=== PATIENT | male | born 1970 | race Caucasian/White ===

== ENCOUNTER 2019-07-20 16:52 | Outpatient (CLI) | payer OTHER, SELFPAY ==
[2019-07-20 17:20] LABS: Basophils Percent Auto 0.7 % (0.2-1.2); Eosinophils Absolute Auto 0.1 K/mm3 (0-0.3); Eosinophils Percent Auto 2.2 % (0-4.4); Hematocrit 41.4 % (42.0-52.0); Hemoglobin 14.6 g/dL (14.0-18.0); Immature Granulocyte Absolute 0.01 K/mm3 (0.00-0.031); Immature Granulocyte Percent A 0.2 % (0-0.5); Lymphocytes Absolute Auto 2.43 K/mm3 (0.9-3.2); Lymphocytes Percent Auto 40.4 % (18.3-44.2); Mean Corpuscular HGB Conc 35.3 g/dl (32-36); Mean Corpuscular Hemoglobin 31.2 pg (26-34); Mean Corpuscular Volume 88.5 fl (80-100); Mean Platelet Volume 9.3 fl (7.4-10.4); Monocytes Absolute Auto 0.5 K/mm3 (0.1-0.6); Monocytes Percent Auto 8.1 % (2.6-8.5); Neutrophils Absolute Auto 2.9 K/mm3 (1.3-6.7); Neutrophils Percent Auto 48.4 % (45.5-73.1); Platelet Count Result 188 k/mm3 (150-375); Red Blood Count 4.68 M/mm3 (4.6-6.20); Red Cell Distribution Width 13.1 % (11.5-14.5)
[2019-07-20 17:24] LABS: Alanine Aminotransferase 33 U/L (4-50); Albumin Level 4.5 g/dL (3.5-5.1); Alkaline Phosphatase 73 U/L (38-126); Aspartate Amino Transferase 28 U/L (17-59); Bilirubin,Total 0.4 mg/dL (0.2-1.3); Blood Urea Nitrogen 13 mg/dL (9-20); Calcium 8.8 mg/dL (8.4-10.2); Carbon Dioxide 25 mmol/L (22-30); Chloride 106 mmol/L (98-107); Estimated Glomerular Filt Rate > 60; Glucose 85 mg/dL (75-110); Sodium 138 mmol/L (137-145)
[2019-07-20 17:35] LABS: Troponin I < 0.012 ng/mL (0.000-0.034)
== END 2019-07-20 16:53 | disposition home or self-care (01) ==
PROVIDERS: PCP Internal Medicine; Visit Provider Internal Medicine
DX: R06.02 Shortness of breath (principal); R07.89 Other chest pain
CPT/HCPCS: 36415; 80053; 84484; 85025

== ENCOUNTER 2019-08-26 10:10 | Outpatient (CLI) | payer OTHER, SELFPAY ==
[2019-08-26 11:00] LABS: Erythrocyte Sedimentation Rate 8 mm/hr (0-20)
== END 2019-08-26 10:11 | disposition home or self-care (01) ==
LOC: ANHLAB 10:11
PROVIDERS: PCP Internal Medicine; Visit Provider Internal Medicine
DX: R51 Headache (principal)
CPT/HCPCS: 36415; 85652

== ENCOUNTER 2021-09-07 09:44 | Inpatient (IN) | payer BC, SELFPAY ==
[2021-09-07] VITALS (24 sets, daily range): BP systolic 96–121; BP diastolic 56–92; PULSE 72–111; RESP 14–28; TEMP 36.5–36.9; O2SAT 94–96
--- NOTE | ~2021-09-07 | US_ITS ---
EXAMINATION: US venous doppler [facility] DATE: 09/10/2021 08:27 INDICATION: Shortness of breath TECHNIQUE: Ma scale images without and with compression and Doppler images of the bilateral lower e xtremity veins were obtained. COMPARISON: None FINDINGS: The right common femoral vein, profunda femoral vein, femoral vein, popliteal vein, peroneal trunk, p osterior tibial veins, and greater saphenous vein are patent. The left common femoral vein, profunda femoral vein, femoral vein, popliteal vein, peroneal trunk, po sterior tibial veins, and greater saphenous vein are patent. IMPRESSION: 1. Patent bilateral lower extremity veins. No evidence of deep venous thrombosis. Reviewed, dictated and finalized at location A. IMPRESSION: 1. Patent bilateral lower extremity veins. No evidence of deep venous thrombosi s.
--- NOTE | ~2021-09-07 | CT_ITS ---
EXAMINATION: CTA chest PE protocol DATE: 09/08/2021 14:16 INDICATION: NAVARRO, elevated d-dimer TECHNIQUE: Computed tomography angiography (CTA) of the chest was performed with 100 mL Omnipaque-350 intravenous contrast timed to evaluate the pulmonary arteries. Coronal maximum intensity projection 3D-reconstructions were created by the technologist. The dose-length product (DLP) was 932.86 mGy-cm. Automated exposure control and iterative reconstruction technique were employed. COMPARISON: X-ray chest 09/07/2021. FINDINGS: Study quality: Adequate. Pulmonary arteries: No pulmonary emboli detected. Dilation of the left and right main pulmonary arter ies. Thoracic aorta: Normal. Lung parenchyma and airways: Apical pleural blebs. Mild emphysematous change. Patchy dependent ground glass opacities. Mild interlobular septal thickening. Airways are clear. Thoracic inlet, axillae and chest wall: Unremarkable. Mediastinum: Normal. Heart and pericardium: Enlarged. Hepatic vein reflux. Coronary artery calcifications: Mild. Pleura: Small volume bilateral pleural fluid collections. Upper abdomen: No significant finding. Bones: No acute osseous finding. IMPRESSION: No CT evidence of acute pulmonary embolus. Pulmonary arterial dilation as can be seen with pulmonary artery hypertension. Hepatic vein reflux may indicate presence of right heart failure. Cardiomegaly. Mild pulmonary edema and small bilateral effusions. Reviewed, dictated and finalized at location K. IMPRESSION: No CT evidence of acute pulmonary embolus. Pulmonary arterial dilation as can b e seen with pulmonary artery hypertension. Hepatic vein reflux may indicate pre sence of right heart failure. Cardiomegaly. Mild pulmonary edema and small bila teral effusions.
--- NOTE | ~2021-09-07 | XR_ITS ---
EXAMINATION: XR chest 2V DATE: 09/07/2021 10:44 INDICATION: Chest pain and shortness of breath TECHNIQUE: PA and lateral views of the chest were obtained. COMPARISON: None FINDINGS: Increased interstitial pattern with perihilar and lower lung predominance along with multiple periphe ral José Luis B-lines along the bilateral mid to lower lung zones consistent with pulmonary edema. Small bilateral pleural effusions. No pneumothorax. Mild cardiomegaly. Mild thoracic spondylosis. IMPRESSION: 1. Likely congestive heart failure with mild cardiomegaly, mild pulmonary edema and small bilateral p leural effusions. Reviewed, dictated and finalized at location B. IMPRESSION: 1. Likely congestive heart failure with mild cardiomegaly, mild pulmonary edema and small bilateral pleural effusions.
--- NOTE | 2021-09-07 09:54 | ECG_ITS ---
Measurements Intervals [place] Rate: 103 P: 60 WI: 152 QRS: -42 QRSD: 106 T: 61 QT: 344 QTc: 451 Interpretive Statements SINUS TACHYCARDIA WITH OCCASIONAL VENTRICULAR PREMATURE COMPLEXES POSSIBLE LEFT ATRIAL ENLARGEMENT [-0.1mV P WAVE IN V1/V2] MARKED LEFT AXIS DEVIATION [QRS AXIS < -30] NONSPECIFIC T-WAVE ABNORMALITY NO PREVIOUS ECG AVAILABLE FOR COMPARISON Electronically Signed On 09-07-2021 16:47:04 CDT by Tommy Mendoza M.D.
[2021-09-07 10:14] LABS: Basophils Percent Auto 0.6 % (0.2-1.2); Eosinophils Absolute Auto 0.1 K/mm3 (0-0.3); Eosinophils Percent Auto 2.7 % (0-4.4); Hematocrit 39.9 % (42.0-52.0); Hemoglobin 13.1 g/dL (14.0-18.0); Immature Granulocyte Absolute 0.01 K/mm3 (0.00-0.031); Immature Granulocyte Percent A 0.2 % (0-0.5); Lymphocytes Absolute Auto 1.09 K/mm3 (0.9-3.2); Lymphocytes Percent Auto 22.4 % (18.3-44.2); Mean Corpuscular HGB Conc 32.8 g/dl (32-36); Mean Corpuscular Hemoglobin 29.6 pg (26-34); Mean Corpuscular Volume 90.3 fl (80-100); Mean Platelet Volume 9.7 fl (7.4-10.4); Monocytes Absolute Auto 0.4 K/mm3 (0.1-0.6); Neutrophils Absolute Auto 3.2 K/mm3 (1.3-6.7); Neutrophils Percent Auto 66.1 % (45.5-73.1); Platelet Count Result 176 k/mm3 (150-375); Red Blood Count 4.42 M/mm3 (4.6-6.20); Red Cell Distribution Width 14.6 % (11.5-14.5); White Blood Count 4.9 K/mm3 (4.5-10.0)
[2021-09-07 10:29] LABS: Alanine Aminotransferase 63 U/L (6-50); Albumin Level 4.3 g/dL (3.5-5.1); Alkaline Phosphatase 60 U/L (38-126); Anion Gap 5 mmol/L (8-16); Aspartate Amino Transferase 58 U/L (17-59); Blood Urea Nitrogen 12 mg/dL (9-20); Calcium 8.5 mg/dL (8.4-10.2); Carbon Dioxide 26 mmol/L (22-30); Chloride 107 mmol/L (98-107); Estimated Glomerular Filt Rate > 60; Glucose 108 mg/dL (65-110); Potassium 4.7 mmol/L (3.4-5.0); Sodium 138 mmol/L (137-145)
[2021-09-07 10:35] LABS: NT Pro B Type Natriuretic Pept 909 pg/mL (5-100)
[2021-09-07] MEDS: ALBUTEROL SULFATE NEB 2.5 MG/3 ML INH 5 MG INHALATION (10:44)
[2021-09-07] MEDS: IPRATROPIUM BR 0.02% INH SOLN 0.5 MG/2.5 ML VIAL INHALATION (10:45)
--- NOTE | 2021-09-07 10:54 | PC.NURSE ---
called lab to add on a Trop baseline at 1028; called lab again at 1055 to have them run the Trop baseline
[2021-09-07 11:19] LABS: Troponin I < 0.012 ng/mL (0.000-0.034)
[2021-09-07] MEDS: FUROSEMIDE INJ 40 MG/4 ML VIAL IV PUSH (11:29)
--- NOTE | 2021-09-07 11:58 | ED.SOB ---
HPI - SOB/Dyspnea General Chief Complaint: Shortness of Breath/Dyspnea Stated Complaint: shortness of breath - sent from PCP for abn EKG Time Seen by Provider: 09/07/21 09:52 History of Present Illness HPI Narrative: Patient is a 50-year-old male who presents ER with shortness of breath. Ongoing for 10 days. Associated with orthopnea and coughing and wake himself up at night. No fevers or chills or sweats. No new lower extremity swelling. Reported some mild chest pain that occurred yesterday for about 30 minutes was working. It was aching. Sent from his PCPs office due to symptoms. No history of heart disease. He has been using his home inhalers without improvement. Related Data Allergies Allergy/AdvReac Type Severity Reaction Status Date / Time No Known Allergies Allergy Verified 09/07/21 09:53 Review of Systems Review of Systems: All systems reviewed & are unremarkable except as noted in HPI and below Constitutional: Constitutional: Denies chills, Reports fatigue and Denies fever(s) ENT: Denies sore throat Cardiovascular: Cardiovascular: Reports chest pain, Denies rapid heart rate and Denies radiating jaw, neck or arm pain Respiratory: Respiratory: Denies cough, Reports dyspnea and Denies wheezing Comments: orthopnea Gastrointestinal: Gastrointestinal: Denies abdominal pain, Denies nausea and Denies vomiting Exam Narrative: GENERAL: Well-appearing, well-nourished, and in no acute distress. HEAD: Normocephalic, atraumatic. EYES: PERRL and EOMI. CHEST: Clear to auscultation. No respiratory distress. Faint expiratory wheeze left upper lung. HEART: Tachycardic and regular. Normal peripheral pulses. ABDOMEN: Soft, nontender, nondistended. EXTREMITIES: Normal range of motion. No edema. SKIN: Warm, dry, no rash. NEURO: Alert and oriented x3. PSYCH: Normal mood and affect. Course Course Emergency Course: Admit to the hospital service for diuresis and an echocardiogram. Vital Signs Vital signs: Vital Signs Temperature 98.4 F 09/07/21 09:49 Pulse Rate 111 H 09/07/21 09:49 Respiratory Rate 22 H 09/07/21 09:49 Pulse Oximetry 95 09/07/21 09:49 Oxygen Delivery Room Air 09/07/21 09:49 Temperature 98.4 F 09/07/21 09:49 Pulse Rate 102 H 09/07/21 12:36 Respiratory Rate 28 H 09/07/21 12:36 Blood Pressure 116/92 H 09/07/21 12:36 Pulse Oximetry 95 09/07/21 11:26 Oxygen Delivery Room Air 09/07/21 10:48 MDM - SOB/Dyspnea Lab Data Result diagrams: 09/07/21 10:04 09/07/21 10:04 Labs: Lab Results 09/07/21 09/07/21 09/07/21 Range/Units 10:04 10:04 10:04 WBC 4.9 (4.5-10.0) K/mm3 RBC 4.42 L (4.6-6.20) M/mm3 Hgb 13.1 L (14.0-18.0) g/dL Hct 39.9 L (42.0-52.0) % MCV 90.3 (80-100) fl MCH 29.6 (26-34) pg MCHC 32.8 (32-36) g/dl RDW 14.6 H (11.5-14.5) % Plt Count 176 (150-375) k/mm3 MPV 9.7 (7.4-10.4) fl Immature Gran % (Auto) 0.2 (0-0.5) % Neut % (Auto) 66.1 (45.5-73.1) % Lymph % (Auto) 22.4 (18.3-44.2) % [place] % (Auto) 8.0 (2.6-8.5) % Eos % (Auto) 2.7 (0-4.4) % Baso % (Auto) 0.6 (0.2-1.2) % Lymph # (Auto) 1.09 (0.9-3.2) K/mm3 [place] # (Auto) 0.4 (0.1-0.6) K/mm3 Eos # (Auto) 0.1 (0-0.3) K/mm3 Baso # (Auto) 0.0 (0.0-0.1) K/mm3 Abs Immat Gran (auto) 0.01 (0.00-0.031) K/mm3 Absolute Neuts (auto) 3.2 (1.3-6.7) K/mm3 Absolute Nucleated RBC 0.0 (0.0-0.012) K/mm3 Nucleated RBC % 0.0 (0.0-0.2) % Sodium 138 (137-145) mmol/L Potassium 4.7 (3.4-5.0) mmol/L Chloride 107 (98-107) mmol/L Carbon Dioxide 26 (22-30) mmol/L Anion Gap 5 L (8-16) mmol/L BUN 12 (9-20) mg/dL Creatinine 0.80 (0.7-1.3) mg/dL Estim Creat Clear Calc Not Reportable Estimated GFR > 60 (59 - ) Glucose 108 (65-110) mg/dL Calcium 8.5 (8.4-10.2) mg/dL Total Bilirubin 1.0 (0.2-1.3) mg/dL AST 58 (17-59) U/L ALT
--- NOTE | 2021-09-07 13:06 | ADMGEN ---
This patient, Kwasi Hwang, was admitted to Medical Room 249-01. Patient/family oriented to hospital policies and general routines including ID bracelet, bed and alarms, visiting hours, pain management, procedures, bathroom and other care routines, personal items, smoking policy, room service/diet, and visiting hours. Information on how to activate the Rapid Response Team has been discussed. Patient/Family are encouraged to report perceived risks to care and to ask questions if they do not understand what they are told or what they should do. Reviewed plan of care
--- NOTE | 2021-09-07 14:30 | PM.IMHP ---
H&P: HPI History of Present Illness Date/Time: 09/07/21 14:30 Chief Complaint: Shortness of breath. Narrative: This is a pleasant 50-year-old male with no significant medical history presented to the emergency department for evaluation of shortness of breath. Over the past 1 month or so he has developed shortness of breath, mainly at nighttime with orthopnea and dry cough. At times he has awakened from sleep with shortness of breath and an ache or squeezing like sensation around the chest ?almost like I am suffocating.? The symptoms improved quickly once he gets to a seated or standing position. He even describes having to kneel on the floor and lean on the bed in order to sleep. 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 He was tachycardic on arrival to the emergency department with an EKG showing sinus tachycardia and occasional PVCs. Chest x-ray showed findings consistent with pulmonary edema, small bilateral pleural effusions, and mild cardiomegaly and he is being admitted in this setting for further evaluation. He has no known history of cardiac disease, sleep apnea, or thyroid disease. He has never had a stress test or other cardiac workup. He has not noticed any significant lower extremity edema and denies calf pain and tenderness. No syncope or near syncope. No recent travel. No nausea, vomiting, or sweats. Of note, the patient consumes 2 to 3 Monster drinks a day. Review of Systems Review of Systems: Twelve systems were reviewed and are negative except for as per HPI. [facility] Past Medical History Medical History No significant past medical history Surgical History Surgical History (Updated 09/07/21 @ 15:59 by Yuliet Shay PA-C) History of bilateral inguinal hernia repair History of ventral hernia repair Family History Family History Father Diabetes mellitus Cerebrovascular accident Mother Lung cancer Social History Social History (Updated 09/07/21 @ 16:01 by Yuliet Shay PA-C) Social History: Surrogate decision maker: Jessica Hwang, spouse. Code status: Full code. Smoking status: Former smoker Additional smoking assessment comments: 1 to 2 packs of cigarettes a day for 30 years. Alcohol intake: former Substance use: never Living arrangements: with family Additional living arrangements comments: The patient lives with his in [place]. They have 3 grown children. 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 Spiritual care concerns: No Meds Home Medications and Allergies Home Medications Medication Instructions Recorded Confirmed Type multivitamin with minerals-folic 1 tablet PO DAILY 09/07/21 09/07/21 History acid 0.4 mg tablet naproxen sodium 220 mg tablet 220 mg PO BID PRN Pain 09/07/21 09/07/21 History (Aleve) omeprazole 20 mg capsule,delayed 20 mg PO DAILY 09/07/21 09/07/21 History release carvedilol 3.125 mg tablet (Coreg) 3.125 mg PO Q12HR #60 tabs 09/10/21 Rx empagliflozin 10 mg tablet 10 mg PO DAILY #30 tabs 09/10/21 Rx (Jardiance) sacubitril 24 mg-valsartan 26 mg 0.5 tablet PO Q12HR #30 tabs 09/10/21 Rx tablet (Entresto) spironolactone 25 mg tablet 25 mg PO QAM #30 tabs 09/10/21 Rx Allergies Allergy/AdvReac Type Severity Reaction Status Date / Time No Known Allergies Allergy Verified 09/07/21 13:44 Vital Signs Vital Signs - 24 hr 09/07/21 09:49 09/07/21 09:54 09/07/21 10:47 Temperature 98.4 F Pulse Rate 111 H 96 Respiratory Rate 22 H 14 Blood Pressure 121/89 Pulse Oximetry 95 Oxygen Delivery Room Air 09/07/21 10:48
--- NOTE | 2021-09-07 15:19 | ECHO_ITS ---
Patient Info Name: Kwasi Hwang Age: 50 years : 1970 Gender: Male Ht: 67 in Wt: 232 lbs BSA: 2.27 m2 HR: 104 bpm BP: 96 / 66 mmHg Heart Rhythm: Sinus Rhythm Technical Quality: Fair Exam Date: 09/07/2021 4:05 PM Exam Location: [facility] Pulmonary Exam Room: 249 Patient Status: Outpatient Admit Date: 09/07/2021 Staff Ordering Physician: Yuleit Shay PA-C Chemical Mixer: Shital Farris RDCS Attending Provider: Rimma Carter MD Referring Physician: Laurita RICARDO; Exam Type: CA echo dop color flow w con Study Info Indications - cp sob chf Complete two-dimensional, color flow and Doppler transthoracic echocardiogram is performed with contrast to opacify the left ventricle and to improve the deliniation of the left ventricle endocardial borders. Summary 1. Left ventricular chamber dimension is severely enlarged. 2. Left ventricular systolic function is severely reduced, estimated at 15-20%. 3. Left atrial chamber dimension is moderately enlarged. 4. There is mild mitral valve regurgitation. 5. Stigmata of low cardiac output. Left Ventricle Left ventricular chamber dimension is severely enlarged. Left ventricular systolic function is severely reduced, estimated at 15-20%. The left ventricular diastolic function is normal. Right Ventricle Right ventricular chamber dimension is normal. Left Atria Left atrial chamber dimension is moderately enlarged. Right Atria Right atrial chamber dimension is normal. Aortic Valve The aortic valve is normal. Pulmonic Valve The pulmonic valve is normal. Mitral Valve The mitral valve has normal leaflets. There is mild mitral valve regurgitation. Tricuspid Valve The tricuspid valve leaflets are normal. Pericardium/Pleural The pericardium appears normal. Aorta The aortic root size at the sinus of Valsalva is normal. Left Ventricular Outflow Tract Name Value Normal LVOT 2D LVOT Diameter 2.15 cm LVOT Doppler LVOT Peak Gradient 4 mmHg LVOT Mean Gradient 2 mmHg LVOT VTI 18.63 cm LVOT VTI/AV VTI Ratio 1.17 LVOT Stroke Volume 67.57 ml LVOT CO 15.78 l/min LVOT CI 6.94 L/min/m2 Pulmonic Valve Name Value Normal PV Doppler PV Peak Gradient 3 mmHg Mitral Valve Name Value Normal MV Doppler MV Decel Loving 428.53 cm/s2 MV PHT 0 s MV Area (PH
[2021-09-07 15:29] LABS: D Dimer 0.72 ug/mL (<0.48); Troponin I < 0.012 ng/mL (0.000-0.034)
[2021-09-07] MEDS: PERFLUTREN LIPID MICROSPHERES 1.5 ML VIAL DILUTED TO 10 ML TOTAL VOLUME IV PUSH ×2 (16:24→16:30)
[2021-09-07] MEDS: FUROSEMIDE INJ 40 MG/4 ML VIAL 20 MG IV PUSH (18:06)
--- NOTE | 2021-09-07 18:07 | PM.CNCAR ---
Assessment and Plan Assessment and plan (1) Congestive heart failure: Code(s): I50.9 - Heart failure, unspecified Status: Acute Plan This is a 50-year-old man without significant previous medical history. He and his had a viral respiratory illness in the winter and he now presents with decompensated left-sided heart failure and echocardiographic evidence of a profound cardiomyopathy. He has been started on furosemide by the hospitalist. For the time being that will be continued I am going to add low doses of carvedilol, Entresto and spironolactone. We will watch his hemodynamics and electrolytes carefully. Spoke to the patient and his at great length about the diagnosis the need for eventual catheterization to ensure this is not an ischemic process which I doubt. We also talked about the electrical risk and the need for defibrillator protection while his ejection fraction is low. Follow him with you during the hospitalization. Given the profound nature of his cardiomyopathy by echo I will also refer him to the Advanced Heart failure team at [place] at the time of discharge. Tommy Mendoza MD [facility] History of Present Illness History of Present Illness Consult date/time: 09/07/21 18:07 Consult reason: congestive heart failure Reason For Visit: Heart failure exacerbation Narrative: This is a very pleasant 50-year-old man I am seeing at the request of the hospitalist for assistance with the evaluation and management of congestive heart failure. He is not known to have any heart problems and really does not have any significant medical problems prior to this. He states that he has been experiencing symptoms of shortness of breath for just over a month. This started to mildly with symptoms of shortness of breath with bending over to tie his shoes and other activities like this. 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 In the last couple of weeks this has progressed to the sensation of a positional dyspnea with orthopnea and PND. This has been severe in the last couple of nights and he went to see his physician today. He was seen in the office where an electrocardiogram was found to be abnormal and he was sent to the emergency room for further evaluation. His ECG shows a sinus mechanism with intraventricular conduction delay and repolarization abnormalities. In the emergency room his examination was compatible with left-sided heart failure with pulmonary congestion. He had an echocardiogram done this afternoon which I looked at just before coming to the room to see him. He has a profound systolic cardiomyopathy. His left ventricle is markedly enlarged with profound global systolic hypocontractility. He does have a mild amount of mitral regurgitation which is the result of annular dilation. In this setting I am seeing him in consultation. He and his detailed questioning did have a significant respiratory viral illness winter this past year they think in March the had a viral bronchitis. They were concerned that they had coronavirus but the indicated they were tested by their physician and testing was negative for that. He recovered from the bronchitis without any further problems. He does not have any prior history of hypertension diabetes or dyslipidemia. His father of a stroke his mother of lung cancer. His parents were heavy smokers. This gentleman was a smoker of cigarettes for until about 14 years ago when quit. He is currently to his 2nd who is with him in the room. Review of Systems Constitutional: Constitutional: Reports lethargy Eyes: Eyes: Reports no additional eye complaints ENT: Reports system reviewed and no additional complaints, except as documented Cardiovascular: Cardiovascular: Reports as per HPI Respiratory: Respiratory: Reports dyspnea on exertion Gastrointestinal: Gastroin
--- NOTE | 2021-09-07 18:50 | PCCCNOTE ---
Called to [facility] on [address] to check coverage and if prior auth is needed for Sacubitril/ Valsartan 12mg/13mg [Entresto] 1 tab PO Q12. Spoke with clinical pharmacy specialist who states that the lowest dosage of this combined tablet is 24 so unable to check coverage as ordered.
[2021-09-07] MEDS: carvediloL 3.125 MG TABLET PO (20:28)
[2021-09-07] MEDS: SACUBITRIL/VALSARTAN 12-13 MG TABLET 1 TAB PO (20:28)
[2021-09-07] MEDS: ACETAMINOPHEN 325 MG TABLET 650 MG PO (22:57)
[2021-09-08] VITALS (14 sets, daily range): BP systolic 98–120; BP diastolic 57–66; PULSE 89–100; RESP 18–20; TEMP 36.1–36.7; O2SAT 95–99
[2021-09-08 05:46] LABS: Hematocrit 41.3 % (42.0-52.0); Mean Corpuscular HGB Conc 33.9 g/dl (32-36); Mean Corpuscular Hemoglobin 30.2 pg (26-34); Mean Platelet Volume 9.7 fl (7.4-10.4); Platelet Count Result 181 k/mm3 (150-375); Red Blood Count 4.64 M/mm3 (4.6-6.20); Red Cell Distribution Width 14.4 % (11.5-14.5); White Blood Count 5.2 K/mm3 (4.5-10.0)
[2021-09-08 05:53] LABS: Alanine Aminotransferase 61 U/L (6-50); Albumin Level 4.1 g/dL (3.5-5.1); Alkaline Phosphatase 61 U/L (38-126); Anion Gap 6 mmol/L (8-16); Aspartate Amino Transferase 41 U/L (17-59); Bilirubin,Total 1.1 mg/dL (0.2-1.3); Blood Urea Nitrogen 16 mg/dL (9-20); Calcium 8.4 mg/dL (8.4-10.2); Carbon Dioxide 31 mmol/L (22-30); Chloride 101 mmol/L (98-107); Estimated Glomerular Filt Rate > 60; Glucose 160 mg/dL (65-110); Potassium 3.3 mmol/L (3.4-5.0); Sodium 138 mmol/L (137-145)
[2021-09-08] MEDS: carvediloL 3.125 MG TABLET PO ×2 (10:04→20:45)
[2021-09-08] MEDS: POTASSIUM CHLORIDE 20 MEQ TABLET 40 MEQ PO (10:04)
[2021-09-08] MEDS: FUROSEMIDE INJ 40 MG/4 ML VIAL 20 MG IV PUSH (10:05)
[2021-09-08] MEDS: SPIRONOLACTONE 25 MG TABLET PO (10:05)
[2021-09-08] MEDS: SACUBITRIL/VALSARTAN 12-13 MG TABLET 1 TAB PO ×2 (10:05→20:45)
[2021-09-08] MEDS: THERAPEUTIC MULTIVITAMINS/MINERALS TAB (*BKC) 1 TABLET PO (10:05)
[2021-09-08] MEDS: ENOXAPARIN 40 MG/0.4 ML SYRINGE SUB-Q (10:05)
[2021-09-08] MEDS: PANTOPRAZOLE 40 MG TABLET PO (10:05)
--- NOTE | 2021-09-08 12:12 | PM.IMPN ---
Progress Note: A&P Assessment and Plan (1) Acute systolic heart failure: Code(s): I50.21 - Acute systolic (congestive) heart failure <Hortensia Juan Manuel LUCIE Duran - Last Filed: 09/08/21 12:22> Status: Acute <Hortensia Zambrano LUCIE Duran - Last Filed: 09/08/21 12:22> Assessment and Plan: Patient with new onset HFrRF -Echo reveals an EF of 15-20% -cardiology has been consulted and recommended carvedilol, Entresto, spironolactone, and Lasix (currently IV) -patient's blood pressure is a little low and he is feeling weak. May consider decreasing dosages of cardiac medications. I will speak with Cardiology. -etiology unclear--could be due to unknown viral illness he had earlier this year. He states he tested negative for COVID a lost his sense of smell and taste during that time. No evidence of ACS. -may need to consider defibrillator placement -plan for outpatient ischemic workup <Hortensia ElaineSammy Duran PA-C - Last Filed: 09/08/21 12:22> (2) Elevated d-dimer: Code(s): R79.89 - Other specified abnormal findings of blood chemistry <Hortensia Juan Manuel LUCIE Duran - Last Filed: 09/08/21 12:22> Status: Acute <Hortensia Juan Manuel LUCIE Duran - Last Filed: 09/08/21 12:22> Assessment and Plan: Nonspecific and may be due to acute decompensated heart failure -will order CTA to be thorough since patient was having shortness of breath although I do suspect this is from his reduced EF <Hortensiaana Duran PA-C - Last Filed: 09/08/21 12:22> (3) Hyperglycemia: Code(s): R73.9 - Hyperglycemia, unspecified <Hortensia Juan Manuel LUCIE Duran - Last Filed: 09/08/21 12:22> Status: Acute <Hortensia Juan Manuel LUCIE Duran - Last Filed: 09/08/21 12:22> Assessment and Plan: Last glucose 160, will order A1c in the morning <Hortensia Duran PA-C - Last Filed: 09/08/21 12:22> (4) Ventricular trigeminy: Code(s): I49.8 - Other specified cardiac arrhythmias <LUCIE Camilo Last Filed: 09/08/21 12:22> Status: Acute <LUCIE Camilo Last Filed: 09/08/21 12:22> Assessment and Plan: Noted on telemetry -await cardiacs recommendations -magnesium 2.0, potassium 3.3 (supplemented today) -may need defibrillator placement <LUCIE Camilo Last Filed: 09/08/21 12:22> Time Spent With Patient Time with patient: 25 - 35 minutes <LUCIE Camilo Last Filed: 09/08/21 12:22> Subjective Date/time seen: 09/08/21 12:12 <LUCIE Camilo Last Filed: 09/08/21 12:22> Interval history: Pt is a 50-year-old male here for new onset CHF. Patient states he is feeling better today although he is quite tired. He did not sleep overnight due to commotion motion at the hospital. He says his shortness of breath is improving and he was able to lay flat for little bit today which is an improvement. He still feels weak but he is getting his appetite back. He denies nausea, vomiting, fevers or leg swelling. No history of blood clots. No chest pain today other than palpable chest pain from the echo machine. <LUCIE Camilo Last Filed: 09/08/21 12:22> Review of Systems Review of Systems: All systems reviewed & are unremarkable except as noted in HPI and below <LUCIE Camilo Last Filed: 09/08/21 12:22> Exam Narrative: General: Well developed well nourished patient in NAD HEENT: normocephalic Neck: supple Neuro: Alert and oriented x4 CV:RRR. Telemetry showing trigeminy Resp:CTA Abd: Soft, non distended. No pain to palpation. Positive bowel sounds Extremities: No swelling, erythema, or pain to palpation. <LUCIE Camilo Last Filed: 09/08/21 12:22> Objective Data Vital Signs Vital Signs: Vital Signs - 24 hr 09/07/21 12:36 09/07/21 13:35 09/07/21 13:10 Temperature 98 F Pulse Rate 102 H 103 H 110 H Respiratory Rate 28 H 16 Blood Pressure 116/92 H 96/56 L Pulse Oximetry 94 Oxyg
--- NOTE | 2021-09-08 12:30 | PM.PNCARD ---
Progress Note: A&P Assessment and Plan (1) Congestive heart failure: Code(s): I50.9 - Heart failure, unspecified Status: Acute Plan Severe dilated cardiomyopathy in this 50-year-old man. History is most compatible with a post viral event as I mentioned in my H and P. No ischemic symptomatology according to the history I am obtaining. Starting him on guideline directed medical therapy cautiously and gradually because he is not hypertensive. So far he is tolerating the 1st couple of doses of Entresto and carvedilol without difficulty. He feels much better. I would probably stop the IV furosemide at this time in hopes to avoid relative volume depletion and hypotension. Will cautiously advanced his Coreg and Entresto as tolerated. Probably advanced medication tomorrow if he is doing well. He will need a life vest device supplied prior to discharge. He will need a coronary angiogram once he is optimized to ensure this is nonischemic process but I doubt that is the case. As I mentioned in my previous note I think he should be referred to the Heart failure Clinic at [place] given the profound nature of his cardiomyopathy by echo. Tommy Mendoza MD [facility] Subjective Date/time seen: Date of service: 09/08/21 12:30 Interval history: Follow-up visit in this 50-year-old man with newly diagnosed dilated cardiomyopathy. He feels much better this morning breathing is much more comfortable laid down flat this morning without any difficulty for the 1st time in a long time. Chart indicates no difficulty with hypotension following low doses of carvedilol and Entresto. He has a CTA of the chest scheduled for this morning/rule out pulmonary embolism? Exam Const: General: comfortable and no acute distress Other: Well-developed well-nourished gentleman no distress appears to be in good spirits standing in the room visiting his HENMT: Mouth: Yes moist mucous membranes Eyes: Sclera: sclerae normal Neck: Neck: supple Other: Normal carotid upstrokes diminished carotid volume, no bruit Resp: Auscultation: clear to auscultation bilaterally Cardio: Rate: regular rate and tachycardic Rhythm: regular rhythm GI: GI Palp: Yes Soft to palpation Auscultation: normal bowel sounds Skin: General skin exam: normal color Neuro: Other: Normal cognition Extrem: Other: No peripheral edema at this time Objective Data Vital Signs Vital Signs: Vital Signs - 24 hr 09/07/21 12:36 09/07/21 13:35 09/07/21 13:10 Temperature 36.6 C Pulse Rate 102 H 103 H 110 H Respiratory Rate 28 H 16 Blood Pressure 116/92 H 96/56 L Pulse Oximetry 94 Oxygen Delivery 09/07/21 16:00 09/07/21 20:28 09/07/21 20:00 Temperature Pulse Rate 95 72 109 H Respiratory Rate Blood Pressure Pulse Oximetry Oxygen Delivery 09/07/21 20:00 09/07/21 20:00 09/07/21 22:00 Temperature 36.6 C 36.5 C Pulse Rate 72 72 107 H Respiratory Rate 16 16 18 Blood Pressure 96/56 L 108/78 Pulse Oximetry 94 94 95 Oxygen Delivery Room Air 09/07/21 22:00 09/07/21 22:05 09/07/21 22:10 Temperature 36.5 C 36.8 C Pulse Rate 107 H 103 H 89 Respiratory Rate 18 18 18 Blood Pressure 108/78 100/67 114/83 Pulse Oximetry 95 95 96 Oxygen Delivery 09/08/21 00:00 09/08/21 04:00 09/08/21 06:00 Temperature 36.2 C L Pulse Rate 90 97 89 Respiratory Rate 18 Blood Pressure 106/60 Pulse Oximetry 95 Oxygen Delivery 09/08/21 08:00 09/08/21 08:00 09/08/21 08:43 Temperature 36.4 C Pulse Rate 95 Respiratory Rate 18 Blood Pressure 99/66 L 99/66 L 100/63 Pulse Oximetry 96 Oxygen Delivery 09/08/21 08:43 09/08/21 10:04 09/08/21 08:00 Temperature Pulse Rate 98 100 Respiratory Rate Blood Pressure 101/57 L Pulse Oximetry Oxygen Delivery 09/08/21 10:15 Temperature Pulse Rate Respiratory Rate Blood Pressure Pulse Oximetry Oxygen Delivery Room Air Intake/Output Int
[2021-09-09] VITALS (19 sets, daily range): BP systolic 93–111; BP diastolic 52–78; PULSE 86–109; RESP 16–18; TEMP 36.3–36.5; O2SAT 96–97
[2021-09-09 05:34] LABS: Hematocrit 41.9 % (42.0-52.0); Mean Corpuscular HGB Conc 33.4 g/dl (32-36); Mean Corpuscular Hemoglobin 30.1 pg (26-34); Mean Corpuscular Volume 90.1 fl (80-100); Mean Platelet Volume 9.4 fl (7.4-10.4); Platelet Count Result 174 k/mm3 (150-375); Red Blood Count 4.65 M/mm3 (4.6-6.20); Red Cell Distribution Width 14.3 % (11.5-14.5); White Blood Count 4.9 K/mm3 (4.5-10.0)
[2021-09-09 05:46] LABS: Anion Gap 6 mmol/L (8-16); Blood Urea Nitrogen 14 mg/dL (9-20); Calcium 8.5 mg/dL (8.4-10.2); Carbon Dioxide 28 mmol/L (22-30); Chloride 103 mmol/L (98-107); Estimated Glomerular Filt Rate > 60; Glucose 143 mg/dL (65-110); Magnesium 2.1 mg/dL (1.6-2.3); Potassium 3.6 mmol/L (3.4-5.0); Sodium 137 mmol/L (137-145)
[2021-09-09 05:48] LABS: Hemoglobin A1C 5.4 % (<5.7)
[2021-09-09] MEDS: SPIRONOLACTONE 25 MG TABLET PO (08:16)
[2021-09-09] MEDS: THERAPEUTIC MULTIVITAMINS/MINERALS TAB (*BKC) 1 TABLET PO (08:16)
[2021-09-09] MEDS: carvediloL 3.125 MG TABLET PO ×2 (08:16→20:18)
[2021-09-09] MEDS: ENOXAPARIN 40 MG/0.4 ML SYRINGE SUB-Q (08:16)
[2021-09-09] MEDS: PANTOPRAZOLE 40 MG TABLET PO (08:16)
[2021-09-09] MEDS: SACUBITRIL/VALSARTAN 12-13 MG TABLET 1 TAB PO ×2 (08:16→20:19)
--- NOTE | 2021-09-09 11:15 | PM.PNCARD ---
Progress Note: A&P Assessment and Plan (1) Congestive heart failure: Code(s): I50.9 - Heart failure, unspecified Status: Acute Plan 50-year-old man with congestive heart failure newly diagnosed cardiomyopathy. He has very large LV diameter and very low ejection fraction indicating this is a chronic phenomenon even though the diagnosis has just been made. He has done very well with initiation of standard medical therapy. Blood pressure is in the low 100 so I will not advance either his carvedilol or Entresto at this time. Life Vest has been requested. Once he has been fitted with his LifeVest he can be discharged from my perspective I will arrange for follow-up in my office as well as the advanced heart failure team at [place]. If he is still in the hospital tomorrow I will see him in follow-up yet again at that time Tommy Mendoza MD [facility] Subjective Date/time seen: Date of service: 09/09/21 11:15 Interval history: Follow-up visit in this 50-year-old man with: Severe dilated cardiomyopathy suspect this is a post viral phenomenon. He has responded very well clinically to initiation of heart failure medication and is nearly asymptomatic at this time. Life vest has been ordered. Exam Const: General: comfortable and no acute distress Other: Pleasant gentleman no apparent distress HENMT: Mouth: Yes moist mucous membranes Eyes: Sclera: sclerae normal Pupils: Equal, round and reactive pupils present Neck: Neck: supple Other: Minimal jugular venous distension remains. There is no carotid bruit Resp: Effort & Inspection: normal respiratory effort Auscultation: clear to auscultation bilaterally Other: Breath sounds are essentially clear at this time no audible pulmonary rales Cardio: Rate: regular rate Rhythm: regular rhythm Other: S3 is audible PMI is not palpable GI: GI Palp: Yes Soft to palpation Auscultation: normal bowel sounds Skin: General skin exam: normal color Neuro: Other: Normal cognition Extrem: Other: No significant edema at this time Objective Data Vital Signs Vital Signs: Vital Signs - 24 hr 09/08/21 12:00 09/08/21 14:00 09/08/21 16:00 Temperature 36.7 C Pulse Rate 100 96 96 Respiratory Rate 18 Blood Pressure 98/58 L Pulse Oximetry 96 Oxygen Delivery 09/08/21 20:43 09/08/21 20:43 09/08/21 20:44 Temperature 36.1 C L 36.2 C L 36.1 C L Pulse Rate 99 95 100 Respiratory Rate 20 20 20 Blood Pressure 109/64 120/63 105/60 Pulse Oximetry 98 98 99 Oxygen Delivery 09/08/21 20:45 09/08/21 20:00 09/08/21 22:00 Temperature 36.1 C L Pulse Rate 97 97 99 Respiratory Rate 20 Blood Pressure 109/64 Pulse Oximetry 98 Oxygen Delivery 09/09/21 00:00 09/09/21 04:00 09/09/21 06:00 Temperature 36.3 C L Pulse Rate 99 93 86 Respiratory Rate 18 Blood Pressure 104/71 Pulse Oximetry 96 Oxygen Delivery 09/09/21 08:12 09/09/21 08:16 09/09/21 08:00 Temperature Pulse Rate 98 98 106 H Respiratory Rate 16 Blood Pressure 100/63 Pulse Oximetry 97 Oxygen Delivery 09/09/21 08:25 Temperature Pulse Rate Respiratory Rate Blood Pressure Pulse Oximetry 97 Oxygen Delivery Room Air Intake/Output Intake/Output: Intake & Output 09/06/21 09/07/21 09/08/21 09/09/21 23:59 23:59 23:59 23:59 Intake Total 640 2100 790 Balance 640 2100 790 Meds/Results Medications: Active Medications Generic Name Dose Route Start Last Admin Trade Name Haseebq PRN Reason Stop Dose Admin Acetaminophen 650 mg 09/07/21 11:48 09/07/21 22:57 Acetaminophen 325 Mg Tablet PO 650 mg Q4H PRN Administration Mild Pain (1-3) or Fever Carvedilol 3.125 mg 09/07/21 21:00 09/09/21 08:16 Carvedilol 3.125 Mg Tablet PO 3.125 mg Q12HR MARKY Administration Enoxaparin Sodium 40 mg 09/08/21 09:00 09/09/21 08:16 Enoxaparin 40 Mg/0.4 Ml Syringe SUB-Q 40 mg DAILY MARKY Administration Multivitamins/Calc
--- NOTE | 2021-09-09 12:42 | PM.IMPN ---
Progress Note: A&P Assessment and Plan (1) Acute systolic heart failure: Code(s): I50.21 - Acute systolic (congestive) heart failure Status: Acute Assessment and Plan: Patient with new onset HFrRF -Echo reveals an EF of 15-20% -Appreciate cardiology consultation -Continue carvedilol, Entresto, and spironolactone started by Cardiology. BP tolerating these medications in the low 100s, no further uptitration at this time. -Lasix has been discontinued. Patient is euvolemic -Etiology unclear, possibly due to viral illness earlier this year. Reports being diagnosed with bronchitis. -Planning for LifeVest. Hopefully he can be fitted for this tomorrow. Plan for discharge home once LifeVest is applied. -Outpatient ischemic workup following discharge -Per cardiology he will be referred to advanced Heart Failure Clinic at [facility] (2) Elevated d-dimer: Code(s): R79.89 - Other specified abnormal findings of blood chemistry Status: Acute Assessment and Plan: Nonspecific and may be due to acute decompensated heart failure -CTA was negative for PE -Will obtain venous doppler for complete evaluation (3) Hyperglycemia: Code(s): R73.9 - Hyperglycemia, unspecified Status: Acute Assessment and Plan: Blood sugars mildly elevated -A1c is 5.4 -No need for further monitoring (4) Ventricular trigeminy: Code(s): I49.8 - Other specified cardiac arrhythmias Status: Acute Assessment and Plan: Noted on telemetry 09/08 -appreciate cardiology recommendations -magnesium 2.1, potassium 3.6 Subjective Date/time seen: 09/09/21 12:42 Interval history: Date of service: 09/09/2021 Kwasi Hwang is a 50-year-old male with no prior medical history who is seen in follow-up for new onset cardiomyopathy. He is feeling significantly improved during this hospitalization. He states he feels ?100% better.? Shortness of breath has resolved. He no longer endorses NAVARRO. He previously was struggling with orthopnea but now is able to sleep lying flat comfortably. He denies swelling of his extremities or his abdomen. He is able to ambulate around his room without difficulty. He denies cough. Denies chest pain or palpitations. He was feeling a bit drowsy yesterday but he says this is resolved today. He denies dizziness, lightheadedness, weakness. No nausea, vomiting, diarrhea. Reports regular bowel movements. Denies urinary symptoms. He has improved appetite today. He understands he will be fitted for a LifeVest and hopes to accomplish this tomorrow. Review of Systems Review of Systems: All systems reviewed & are unremarkable except as noted in HPI and below Exam Narrative: General: Well-nourished, well-appearing 50-year-old male, sitting up in bed, comfortable, NARD Neuro: awake, alert and oriented x4, speech clear, no focal neuro deficits noted HEENMT: normocephalic, atraumatic, EOMI, sclerae anicteric Respiratory: clear to auscultation bilaterally, nonlabored breathing Cardio: regular rate, regular rhythm with S1-S2 Abdomen: nondistended, normoactive bowel sounds, soft, nontender to palpation Extremities: no edema, erythema, or tenderness to palpation, DP pulses 2+ bilaterally Skin: no rashes or lesions, warm and dry Psych: Pleasant and cooperative, appropriate mood and affect, judgment and insight intact Objective Data Vital Signs Vital Signs: Vital Signs - 24 hr 09/08/21 14:00 09/08/21 16:00 09/08/21 20:43 Temperature 98.1 F 97.0 F L Pulse Rate 96 96 99 Respiratory Rate 18 20 Blood Pressure 98/58 L 109/64 Pulse Oximetry 96 98 Oxygen Delivery 09/08/21 20:43 09/08/21 20:44 09/08/21 20:45 Temperature 97.1 F L 97.0 F L Pulse Rate 95 100 97 Respiratory Rate 20 20 Blood Pressure 120/63 105/60 Pulse Oximetry 98 99 Oxygen Delivery 09/08/21 20:00 09/08/21 22:00 09/09/21 00:00 Temperature 97.0 F L Pulse Rate 97 99 99 Respirator
[2021-09-10] VITALS (7 sets, daily range): BP systolic 92–99; BP diastolic 54–67; PULSE 93–103; RESP 14–18; TEMP 36.3–36.4; O2SAT 94–97; BMI 33.5
[2021-09-10 05:26] LABS: Hematocrit 41.9 % (42.0-52.0); Hemoglobin 13.7 g/dL (14.0-18.0); Mean Corpuscular HGB Conc 32.7 g/dl (32-36); Mean Corpuscular Hemoglobin 29.9 pg (26-34); Mean Corpuscular Volume 91.5 fl (80-100); Mean Platelet Volume 9.5 fl (7.4-10.4); Platelet Count Result 179 k/mm3 (150-375); Red Blood Count 4.58 M/mm3 (4.6-6.20); Red Cell Distribution Width 14.2 % (11.5-14.5); White Blood Count 5.2 K/mm3 (4.5-10.0)
[2021-09-10 05:46] LABS: Anion Gap 8 mmol/L (8-16); Blood Urea Nitrogen 16 mg/dL (9-20); Calcium 8.1 mg/dL (8.4-10.2); Carbon Dioxide 26 mmol/L (22-30); Chloride 105 mmol/L (98-107); Estimated Glomerular Filt Rate > 60; Glucose 109 mg/dL (65-110); Potassium 3.9 mmol/L (3.4-5.0); Sodium 139 mmol/L (137-145)
--- NOTE | 2021-09-10 08:28 | PM.PNCARD ---
Progress Note: A&P Assessment and Plan (1) Dilated cardiomyopathy: Code(s): I42.0 - Dilated cardiomyopathy Status: Acute Assessment and Plan: Newly diagnosed severe cardiomyopathy. Suspect a post viral etiology. Continue GDMT with Entresto, coreg, spironolactone. Will add Jardiance LifeVest has been ordered, awaiting fitting Outpatient referral to Heart Failure at [facility], may require advanced therapies at some point Stable. Anticipate discharge today after LifeVest has been delivered. (2) Acute systolic heart failure: Code(s): I50.21 - Acute systolic (congestive) heart failure Status: Acute Assessment and Plan: As above, stable. He is euvolemic at this point. Continue current medical therapy. Close outpatient follow up. CHF counseling. Subjective Date/time seen: 09/10/21 08:28 Interval history: Follow-up visit in this 50-year-old man with: Severe dilated cardiomyopathy suspect this is a post viral phenomenon. He has responded very well clinically to initiation of heart failure medication and is nearly asymptomatic at this time. Life vest has been ordered. Date of service 09/10/2021: He is feeling very well this morning and has no complaints. He denies any shortness of breath, NAVARRO, palpitations, chest pain. Has been ambulating without difficulty. Awaiting LifeVest fitting then would anticipate discharge. Review of Systems Constitutional: Constitutional: Reports lethargy Eyes: Eyes: Reports no additional eye complaints ENT: Reports system reviewed and no additional complaints, except as documented Cardiovascular: Cardiovascular: Reports as per HPI and Reports dyspnea on exertion Respiratory: Respiratory: Reports dyspnea on exertion Gastrointestinal: Gastrointestinal: Reports no additional gastrointestinal complaints Musculoskeletal: Musculoskeletal: Reports no additional musculoskeletal complaints Integumentary/Breasts: Skin/Breast: Reports system reviewed and no additional complaints, except as docu Neurologic: Reports system reviewed and no additional complaints, except as documented Endocrine: Endocrine: Reports no additional endocrine complaints Hematologic/Lymphatic: Hematologic/Lymphatic: Reports no additional hematologic/lymphatic complaints Allergic/Immunologic: Allergic/Immunologic: Reports no additional allergic/immunologic complaints Exam Const: General: comfortable and no acute distress Other: Pleasant gentleman sitting up in the chair. HENMT: Mouth: Yes moist mucous membranes Eyes: Sclera: sclerae normal Pupils: Equal, round and reactive pupils present Neck: Neck: supple and no JVD Thyroid: thyroid normal Carotids: no bruits Resp: Effort & Inspection: normal respiratory effort Auscultation: clear to auscultation bilaterally Cardio: Rate: regular rate and tachycardic Rhythm: regular rhythm GI: Auscultation: normal bowel sounds Skin: General skin exam: normal color Neuro: Cranial nerves: Yes Equal, round and reactive pupils present Other: Normal cognition Extrem: General: normal to inspection Other: No significant edema at this time Objective Data Vital Signs Vital Signs: Vital Signs - 24 hr 09/09/21 12:00 09/09/21 13:50 09/09/21 16:00 Temperature 36.5 C Pulse Rate 101 H 105 H 100 Respiratory Rate 16 Blood Pressure 93/52 L Pulse Oximetry 96 09/09/21 18:02 09/09/21 18:03 09/09/21 18:05 Temperature Pulse Rate 104 H 109 H 107 H Respiratory Rate Blood Pressure 104/67 106/76 104/62 Pulse Oximetry 09/09/21 20:12 09/09/21 20:18 09/09/21 20:22 Temperature 36.4 C Pulse Rate 100 98 Respiratory Rate 16 Blood Pressure 104/68 93/61 L Pulse Oximetry 97 09/09/21 20:24 09/09/21 20:27 09/09/21 20:00 Temperature Pulse Rate 98 Respiratory Rate Blood Pressure 106/69 111/78 Pulse Oximetry 09/10/21 00:00 09/10/21 04:00 09/10/21 05:50 Temperature 36.4 C
[2021-09-10] MEDS: carvediloL 3.125 MG TABLET PO (09:04)
[2021-09-10] MEDS: SPIRONOLACTONE 25 MG TABLET PO (09:05)
[2021-09-10] MEDS: SACUBITRIL/VALSARTAN 12-13 MG TABLET 1 TAB PO (09:05)
[2021-09-10] MEDS: PANTOPRAZOLE 40 MG TABLET PO (09:05)
[2021-09-10] MEDS: THERAPEUTIC MULTIVITAMINS/MINERALS TAB (*BKC) 1 TABLET PO (09:05)
[2021-09-10] MEDS: ENOXAPARIN 40 MG/0.4 ML SYRINGE SUB-Q (09:06)
[2021-09-10] MEDS: EMPAGLIFLOZIN 10 MG TABLET PO (10:25)
--- NOTE | 2021-09-10 12:41 | PM.DS ---
DS: Admitting Diagnosis Discharge Date 09/10/2021 Admitting Diagnosis Cardiomyopathy DS: Discharge Diagnosis Discharge Diagnosis (1) Acute systolic heart failure: Code(s): I50.21 - Acute systolic (congestive) heart failure Status: Acute Assessment and Plan: Patient with new onset HFrRF -Echo reveals an EF of 15-20% -Etiology unclear, possibly due to viral illness earlier this year. Reports being diagnosed with bronchitis. -He was seen in consultation by Cardiology -He was diuresed with Lasix and had symptomatic improvement. Lasix was discontinued and patient was euvolemic -Started on Entresto, low-dose carvedilol, spironolactone, and Jardiance -Fitted for LifeVest on 09/10/2021. He and his received education for management -Outpatient ischemic workup following discharge -Per cardiology he will be referred to Advanced Heart Failure Clinic at [facility] (2) Elevated d-dimer: Code(s): R79.89 - Other specified abnormal findings of blood chemistry Status: Acute Assessment and Plan: Nonspecific and may be due to acute decompensated heart failure -CTA was negative for PE -Venous Doppler negative for DVT (3) Hyperglycemia: Code(s): R73.9 - Hyperglycemia, unspecified Status: Acute Assessment and Plan: Blood sugar elevated on arrival -A1c is 5.4 -No need for further monitoring DS: Summary Hospital Course Hospital Course: date of admission: 09/07/2021 date of discharge: 09/10/2021 Kwasi Hwang is a 50-year-old male with no prior medical history? who presented to the emergency department on 09/07/2021 with complaints of increased shortness of breath ongoing for approximately 1 month that began progressively worsening to the point where he was not able to tolerate his usual activity and was not able to sleep in his bed as he could not tolerate lying flat. he had been evaluated by his primary care provider and was referred to the emergency department. On presentation, he was mildly tachycardic, additional vital signs stable, laboratory workup unremarkable, troponin negative, and CXR showed findings consistent with congestive heart failure. He was admitted to the hospitalist service for further evaluation and management was seen in consultation by cardiology. Please see above for further details. His echocardiogram revealed significant cardiomyopathy. This may have been related to recent viral respiratory illness several months prior. He was diuresed and had marked symptomatic improvement, feeling back to his usual state of health. He was initiated on appropriate medical management including Entresto, spironolactone, and carvedilol. He was fitted for a LifeVest and he and his were educated on proper management of the Life Vest. He will follow-up with cardiology as an outpatient and will undergo cardiac catheterization to rule out ischemic etiology which is less likely. Given profound cardiomyopathy, he will be referred to the Advanced Heart failure Clinic at [place], per Cardiology. Given the patient's overall improvement, he was determined to no longer require inpatient care and Cardiology was in agreement with plans for discharge. Patient felt comfortable with return home where he lives with his who is able to assist him if needed. Discussed with the patient worrisome signs and symptoms for which to return and he was educated on his new medications. He was discharged in hemodynamically stable condition on 09/10/2021. Status at Discharge Functional status at discharge: independent ambulation Overall status at discharge: patient is progressing back to baseline Time Spent with Patient Time attestation: Total time spent providing and/or coordinating discharge services: 45 minutes Time spent: Greater than 30 minutes Exam Narrative: General: Well-nourished, well-appearing 50-year-old male, sitting up in bed, comfortable, NARD Neuro: awake, alert and oriented x
== END 2021-09-10 15:27 | disposition home or self-care (01) | DRG 292 ==
LOC: ANHED 10:05 → ANH2MED 12:32
PROVIDERS: Physician Assistant; Admitting Provider Family Medicine; Emergency Provider Emergency Medicine; PCP Internal Medicine; Visit Provider Family Medicine
DX: I50.21 Acute systolic (congestive) heart failure (principal); I42.0 Dilated cardiomyopathy; Z87.09 Personal history of other diseases of the respiratory system; R73.9 Hyperglycemia, unspecified; Z87.891 Personal history of nicotine dependence
CPT/HCPCS: 36415; 71046; 71275; 80048; 80053; 80076; 83036; 83735; 83880; 84443; 84484; 85025; 85027; 85380; 93005; 93970; 94640; 96372; 96374; 96375; 96376; 99285; A9270; C8929; G0378; J1650; J1940; Q9957; Q9967

== ENCOUNTER 2021-09-21 11:20 | Outpatient (CLI) | payer BC, SELFPAY ==
[2021-09-21 12:19] LABS: Basophils Percent Auto 0.7 % (0.2-1.2); Eosinophils Absolute Auto 0.1 K/mm3 (0-0.3); Eosinophils Percent Auto 2.4 % (0-4.4); Hematocrit 46.1 % (42.0-52.0); Hemoglobin 15.4 g/dL (14.0-18.0); Immature Granulocyte Absolute 0.01 K/mm3 (0.00-0.031); Immature Granulocyte Percent A 0.2 % (0-0.5); Lymphocytes Absolute Auto 1.46 K/mm3 (0.9-3.2); Lymphocytes Percent Auto 24.9 % (18.3-44.2); Mean Corpuscular HGB Conc 33.4 g/dl (32-36); Mean Corpuscular Hemoglobin 29.8 pg (26-34); Mean Corpuscular Volume 89.2 fl (80-100); Mean Platelet Volume 9.7 fl (7.4-10.4); Monocytes Absolute Auto 0.5 K/mm3 (0.1-0.6); Monocytes Percent Auto 8.5 % (2.6-8.5); Neutrophils Absolute Auto 3.7 K/mm3 (1.3-6.7); Neutrophils Percent Auto 63.3 % (45.5-73.1); Platelet Count Result 194 k/mm3 (150-375); Red Blood Count 5.17 M/mm3 (4.6-6.20); Red Cell Distribution Width 13.8 % (11.5-14.5); White Blood Count 5.9 K/mm3 (4.5-10.0)
[2021-09-21 12:45] LABS: Alanine Aminotransferase 20 U/L (6-50); Albumin Level 4.5 g/dL (3.5-5.1); Alkaline Phosphatase 61 U/L (38-126); Anion Gap 8 mmol/L (8-16); Aspartate Amino Transferase 21 U/L (17-59); Bilirubin,Total 0.7 mg/dL (0.2-1.3); Blood Urea Nitrogen 17 mg/dL (9-20); Calcium 8.9 mg/dL (8.4-10.2); Carbon Dioxide 25 mmol/L (22-30); Chloride 104 mmol/L (98-107); Cholesterol 197 mg/dL (0-200); Estimated Glomerular Filt Rate > 60; Glucose 95 mg/dL (65-110); HDL Direct 31 mg/dL; Potassium 4.4 mmol/L (3.4-5.0); Sodium 137 mmol/L (137-145); Triglycerides 238 mg/dL (<150)
[2021-09-21 12:56] LABS: LDL Cholesterol Direct 90 mg/dL
[2021-09-21 13:09] LABS: Iron 95 ug/dL (49-181)
[2021-09-21 13:13] LABS: NT Pro B Type Natriuretic Pept 644 pg/mL (5-100)
[2021-09-21 13:19] LABS: Percent Iron Saturation 23 % (20-50)
== END 2021-09-21 11:21 | disposition home or self-care (01) ==
PROVIDERS: PCP Internal Medicine; Referring Provider Internal Medicine; Visit Provider Internal Medicine
DX: D64.9 Anemia, unspecified (principal); I50.21 Acute systolic (congestive) heart failure; R74.8 Abnormal levels of other serum enzymes
CPT/HCPCS: 36415; 80053; 80061; 82728; 83540; 83550; 83735; 83880; 85025

== ENCOUNTER 2021-10-19 00:25 | Day surgery (SDC) | payer BC, SELFPAY ==
[2021-10-18 13:41] VITALS: BMI 32.9
[2021-10-19] VITALS (18 sets, daily range): BP systolic 92–104; BP diastolic 65–78; PULSE 72–93; RESP 14–81; TEMP 36–36.3; O2SAT 93–97; BMI 34.4
[2021-10-19 09:04] LABS: Basophils Absolute Auto 0.1 K/mm3 (0.0-0.1); Eosinophils Absolute Auto 0.2 K/mm3 (0-0.3); Hemoglobin 15.2 g/dL (14.0-18.0); Immature Granulocyte Absolute 0.01 K/mm3 (0.00-0.031); Immature Granulocyte Percent A 0.2 % (0-0.5); Lymphocytes Absolute Auto 1.59 K/mm3 (0.9-3.2); Lymphocytes Percent Auto 31.7 % (18.3-44.2); Mean Corpuscular HGB Conc 33.8 g/dl (32-36); Mean Corpuscular Hemoglobin 29.7 pg (26-34); Mean Corpuscular Volume 88.1 fl (80-100); Mean Platelet Volume 9.3 fl (7.4-10.4); Monocytes Absolute Auto 0.4 K/mm3 (0.1-0.6); Monocytes Percent Auto 8.6 % (2.6-8.5); Neutrophils Absolute Auto 2.8 K/mm3 (1.3-6.7); Neutrophils Percent Auto 55.5 % (45.5-73.1); Platelet Count Result 166 k/mm3 (150-375); Red Blood Count 5.11 M/mm3 (4.6-6.20); Red Cell Distribution Width 13.2 % (11.5-14.5)
[2021-10-19 09:15] LABS: Anion Gap 11 mmol/L (8-16); Blood Urea Nitrogen 17 mg/dL (9-20); Calcium 8.8 mg/dL (8.4-10.2); Carbon Dioxide 24 mmol/L (22-30); Chloride 103 mmol/L (98-107); Estimated CRCL calculation 83 ml/min; Estimated Glomerular Filt Rate > 60; Glucose 106 mg/dL (65-110); Potassium 4.1 mmol/L (3.4-5.0); Sodium 138 mmol/L (137-145)
--- NOTE | 2021-10-19 09:21 | WPDMODSED ---
Moderate Sedation Note-Pt Data Patient Data Diagnosis: Dilated cardiomyopathy Present Complaint: Dyspnea Procedure to be performed/Plan: Coronary angiography Allergies Allergy/AdvReac Type Severity Reaction Status Date / Time No Known Allergies Allergy Verified 10/18/21 14:20 Home Medications Medication Instructions Recorded Confirmed Type omeprazole 20 mg capsule,delayed 20 mg PO DAILY PRN Acid Reflux 09/07/21 10/19/21 History release empagliflozin 10 mg tablet 10 mg PO DAILY #30 tabs 09/10/21 10/19/21 Rx (Jardiance) sacubitril 24 mg-valsartan 26 mg 0.5 tablet PO Q12HR #30 tabs 09/10/21 10/19/21 Rx tablet (Entresto) spironolactone 25 mg tablet 25 mg PO QAM #30 tabs 09/10/21 10/19/21 Rx aspirin 81 mg tablet 81 mg PO DAILY 10/18/21 10/19/21 History carvedilol 3.125 mg tablet (Coreg) 6.25 mg PO Q12HR 10/18/21 10/19/21 History pravastatin 40 mg tablet 40 mg PO DAILY 10/18/21 10/19/21 History Current Medications: Active Medications Sodium Chloride (Normal Saline Iv) 500 mls @ 100 mls/hr IV CONT .Q5H MARKY Sedation/Anesthesia: No previous sedation/anesthesia problems (including family history). [facility] Past Medical History Medical History No significant past medical history Surgical History Surgical History (Updated 09/07/21 @ 15:59 by Yuliet Shay PA-C) History of bilateral inguinal hernia repair History of ventral hernia repair Family History Family History Father Diabetes mellitus Cerebrovascular accident Mother Lung cancer Social History Social History (Updated 09/07/21 @ 16:01 by Yuliet Shay PA-C) Social History: Surrogate decision maker: Jessica Hwang, spouse. Code status: Full code. Smoking status: Former smoker Tobacco type: cigarettes Additional smoking assessment comments: 1 to 2 packs of cigarettes a day for 30 years quite 14 years. Alcohol intake: former Alcohol use details: heavy use- quit 10 years ago Substance use: never Substance use type: prescription drug Living arrangements: with family Additional living arrangements comments: The patient lives with his in [place]. They have 3 grown children. 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 Spiritual care concerns: No Mod Sed Physical Exam Physical Exam Pre Procedural Exam: Normal: Appearance, Neck, Throat, Airway, Lungs, Heart Rate, Heart Rhythm, Neuro Exam and Extremities and Variation: Heart Size (PMI enlarged and laterally displaced) Hours since solid foods: 12 Hours since liquid intake: 12 Mallampati Classification: class II Internal Medicine - PN: Obj Da Vital Signs Vital Signs: Vital Signs - 24 hr 10/19/21 09:06 Temperature 36.0 C L Pulse Rate 85 Respiratory Rate 21 H Blood Pressure 103/78 Pulse Oximetry 96 Oxygen Delivery Room Air Meds/Results Medications: Active Medications Generic Name Dose Route Start Last Admin Trade Name Freq PRN Reason Stop Dose Admin Sodium Chloride 500 mls @ 100 mls/hr 10/19/21 08:30 Normal Saline Iv IV CONT .Q5H MARKY Labs CBC & Chem 7: 10/19/21 08:59 10/19/21 08:59 Labs: Laboratory Results - last 24 hr 10/19/21 10/19/21 08:59 08:59 WBC 5.0 RBC 5.11 Hgb 15.2 Hct 45.0 MCV 88.1 MCH 29.7 MCHC 33.8 RDW 13.2 Plt Count 166 MPV 9.3 Immature Gran % (Auto) 0.2 Neut % (Auto) 55.5 Lymph % (Auto) 31.7 [place] % (Auto) 8.6 H Eos % (Auto) 3.0 Baso % (Auto) 1.0 Lymph # (Auto) 1.59 [place] # (Auto) 0.4 Eos # (Auto) 0.2 Baso # (Auto) 0.1 Abs Immat Gran (auto) 0.01 Absolute Neuts (auto) 2.8 Absolute Nucleated RBC 0.0 Nucleated RBC % 0.0 Sodium 138 Potassium 4.1 Chloride 103 Carbon Dioxide 24 Anion Gap 11 BUN 17 Creatinine 1.00 Estim Creat Clear
--- NOTE | 2021-10-19 10:25 | WPDCARDPROC ---
Cardiac Cath Procedure Note Date of procedure:: 10/19/21 Performing physician:: Tommy Mednoza MD Indication:: Recently diagnosed cardiomyopathy Brief clinical history:: this is a 51-year-old man with no previous cardiac history who was in the hospital earlier this year with newly diagnosed congestive heart failure. He was found to have a severe dilated cardiomyopathy. He has responded well clinically to medical therapy. He is admitted today for an angiogram to verify his coronary anatomy Procedure Procedure performed:: coronary angiogram left ventriculogram Sedation/Medication given:: fentanyl 25 mg Versed 2 mg Access site:: right femoral artery Estimated blood loss:: 25 cc Procedure note:: patient was brought to the cardiac catheterization lab in the postabsorptive state the right femoral triangle was prepared and draped in the normal fashion. Anesthesia was provided with 1% lidocaine infiltrated locally. Using the modified Seldinger technique a 5 English sheath was placed into the right femoral artery. After this I used standard Five English FL4 catheter to engage and inject the left coronary artery in multiple projections. I then used a standard 5 English JR4 catheter to engage and inject the right coronary artery in orthogonal projections. After this a 5 English angled pigtail catheter was used to perform left ventriculography document left-sided hemodynamics. For the case was then terminated the patient was taken to the holding area for manual sheath removal. 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 Findings:: hemodynamics: Central aortic pressure is 80 over 52 left ventricle 80/0 end-diastolic pressure 10, no gradient on pullback across the aortic valve. Left ventricle: The left ventricle is profoundly dilated there is profound global systolic hypocontractility ejection fraction is no more than 15% the left main coronary artery is widely patent the left anterior descending is a large caliber vessel extending down to the apex the LAD and its branches are angiographically normal the circumflex is a large caliber vessel giving rise to the marginal branches. The circumflex system is smooth and angiographically normal. The right coronary artery is large caliber and dominant to the posterior circulation. It also is angiographically smooth and normal in appearance Conclusion:: 1. right coronary dominant circulation with no evidence of coronary disease 2. left ventricular dilation with severe global cardiomyopathy low ejection fraction. LVEDP is well compensated. Systemic hypotension precludes advancing heart failure medication at this time Tommy Mendoza MD [facility]
[2021-10-19] MEDS: SODIUM CHLORIDE 0.9% IV 500 ML 100 ML IV CONT (11:11)
[2021-10-19] MEDS: SODIUM CHLORIDE 0.9% IV 1,000 ML 125 ML IV CONT (11:12)
--- NOTE | 2021-10-19 12:19 | SUR.PHASEII ---
Pt resting in bed, HOB to 30 degrees, tolerating well, pt given meal tray, at bedside, continue to monitor.
--- NOTE | 2021-10-19 13:26 | SUR.PHASEII ---
groin soft/nontender. no hematoma noted, dressing d/c/i. patient resting with eyes closed
--- NOTE | 2021-10-19 14:19 | SUR.PHASEII ---
groin wnl. patient updated on up adlib and discharge time.
--- NOTE | 2021-10-19 14:52 | SUR.PHASEII ---
patient ambulated to br with out difficult. r. groin site wnl. patient now up in chair. call light in reach
--- NOTE | 2021-10-19 15:56 | SUR.PHASEII ---
iv dc tip intact. patient education given with at bedside. all questions and concerns address. written instructions given. patient taken via [place] to personal vehicle, driving him home
== END 2021-10-19 15:57 | disposition home or self-care (01) ==
PROVIDERS: PCP Internal Medicine; Visit Provider Specialist
PROC: 4A023N7 Measurement of Cardiac Sampling and Pressure, Left Heart, Percutaneous Approach (ICD-10-PCS; CPT 93452; principal; 2021-10-19 10:00)
DX: I42.0 Dilated cardiomyopathy (principal); R06.00 Dyspnea, unspecified; Z87.891 Personal history of nicotine dependence; Z79.82 Long term (current) use of aspirin; Z79.84 Long term (current) use of oral hypoglycemic drugs; Z79.51 Long term (current) use of inhaled steroids; Z79.891 Long term (current) use of opiate analgesic
CPT/HCPCS: 36415; 80048; 85025; 93458; C1887; C1894; J1644; J2250; J3010; J7040

== ENCOUNTER 2022-01-18 10:25 | Outpatient (CLI) | payer BC, SELFPAY ==
[2022-01-18 11:40] LABS: Alanine Aminotransferase 23 U/L (6-50); Albumin Level 4.6 g/dL (3.5-5.1); Alkaline Phosphatase 59 U/L (38-126); Anion Gap 10 mmol/L (8-16); Aspartate Amino Transferase 28 U/L (17-59); Bilirubin,Total 0.8 mg/dL (0.2-1.3); Blood Urea Nitrogen 14 mg/dL (9-20); Calcium 8.6 mg/dL (8.4-10.2); Carbon Dioxide 24 mmol/L (22-30); Chloride 105 mmol/L (98-107); Cholesterol 163 mg/dL (0-200); Estimated Glomerular Filt Rate > 60; Glucose 96 mg/dL (65-110); HDL Direct 34 mg/dL; Potassium 4.1 mmol/L (3.4-5.0); Sodium 139 mmol/L (137-145); Triglycerides 274 mg/dL (<150)
[2022-01-18 11:46] LABS: LDL Cholesterol Direct 70 mg/dL
[2022-01-18 12:04] LABS: Prostate Specific Antigen 0.5 ng/mL (< OR = 4.0)
== END 2022-01-18 10:26 | disposition home or self-care (01) ==
LOC: ANHLAB 10:29
PROVIDERS: PCP Internal Medicine; Visit Provider Internal Medicine
DX: Z00.00 Encounter for general adult medical examination without abnormal findings (principal); E78.5 Hyperlipidemia, unspecified; Z12.5 Encounter for screening for malignant neoplasm of prostate
CPT/HCPCS: 36415; 80053; 80061; 84153; G0103

== ENCOUNTER 2022-11-01 12:27 | Outpatient (CLI) | payer BC, SELFPAY ==
--- NOTE | ~2022-11-01 | XR_ITS ---
EXAMINATION: XR chest 2V Exam Date/Time: 11/01/2022 12:51 CDT HISTORY: BRONCHITIS CONGESTION AND COUGH Comparison: 09/07/2021. RESULT: Lines, tubes, and devices: None. Lungs and pleura: Diaphragm flattening and increased AP diameter. Mild diffuse reticulonodular opaci ties Streaky bibasilar atelectasis/scar. Bilateral costophrenic angle blunting. Major fissure fluid/t hickening. Cardiomediastinal silhouette: Stable. Other: No acute osseous or upper abdominal finding. IMPRESSION: Emphysematous change. Pulmonary opacities may represent bronchiolitis, as can be seen with atypical i nfection, asthma, aspiration, and small airways disease. Small bilateral pleural effusions versus chr onic pleural parenchymal scarring. Reviewed, dictated and finalized at location K. IMPRESSION: Emphysematous change. Pulmonary opacities may represent bronchiolitis, as can b e seen with atypical infection, asthma, aspiration, and small airways disease. Small bilateral pleural effusions versus chronic pleural parenchymal scarring.
== END 2022-11-01 12:28 | disposition home or self-care (01) ==
PROVIDERS: PCP Internal Medicine; Visit Provider Internal Medicine
DX: J40 Bronchitis, not specified as acute or chronic (principal)
CPT/HCPCS: 71046

== ENCOUNTER 2023-11-06 11:26 | Outpatient (CLI) | payer OTHER, SELFPAY ==
[2023-11-06 17:22] LABS: Hemoglobin A1C 5.7 % (<5.7)
== END 2023-11-06 11:27 | disposition home or self-care (01) ==
LOC: ANHLAB 11:29
PROVIDERS: PCP Internal Medicine; Visit Provider Internal Medicine
DX: Z00.00 Encounter for general adult medical examination without abnormal findings (principal); E78.5 Hyperlipidemia, unspecified; E78.1 Pure hyperglyceridemia; Z12.5 Encounter for screening for malignant neoplasm of prostate; R73.01 Impaired fasting glucose
CPT/HCPCS: 36415; 83036

== ENCOUNTER 2023-11-08 10:02 | Outpatient (CLI) | payer OTHER, SELFPAY ==
[2023-11-08 10:59] LABS: Hemoglobin A1C 5.7 % (<5.7)
== END 2023-11-08 10:03 | disposition home or self-care (01) ==
LOC: ANHLAB 10:04
PROVIDERS: PCP Internal Medicine; Visit Provider Internal Medicine
DX: Z00.00 Encounter for general adult medical examination without abnormal findings (principal); E78.5 Hyperlipidemia, unspecified; E78.1 Pure hyperglyceridemia; Z12.5 Encounter for screening for malignant neoplasm of prostate; R73.01 Impaired fasting glucose
CPT/HCPCS: 36415; 83036

== ENCOUNTER 2023-11-28 10:08 | Outpatient (CLI) | payer OTHER, SELFPAY ==
--- NOTE | ~2023-11-28 | XR_ITS ---
Clinical Indication: Abnormal chest x-ray, physical PA and lateral views of the chest: Comparison: 11/01/2022 Findings: The lungs are clear, without evidence of focal consolidation or pleural effusion. Suspected COPD. Cardiomediastinal silhouette is within normal limits. Bones and soft tissues are unremarkable. Impression: Suspected COPD. No acute abnormality evident. Reviewed, dictated and finalized at location . Impression: Suspected COPD. No acute abnormality evident.
== END 2023-11-28 10:09 | disposition home or self-care (01) ==
PROVIDERS: PCP Internal Medicine; Visit Provider Internal Medicine
DX: R93.89 Abnormal findings on diagnostic imaging of other specified body structures (principal)
CPT/HCPCS: 71046

== ENCOUNTER 2024-01-08 09:49 | Outpatient (CLI) | payer OTHER, SELFPAY | END 2024-01-08 09:50 | disposition home or self-care (01) | LOC: ANHLAB 09:51 | PROVIDERS: PCP Internal Medicine; Visit Provider Internal Medicine | DX: Z12.5 Encounter for screening for malignant neoplasm of prostate (principal); E78.5 Hyperlipidemia, unspecified; R25.3 Fasciculation | CPT/HCPCS: 36415 ==

== ENCOUNTER 2024-01-10 12:05 | Outpatient (CLI) | payer OTHER, SELFPAY ==
[2024-01-10 12:40] LABS: Alanine Aminotransferase 28 U/L (6-50); Albumin Level 4.5 g/dL (3.5-5.1); Alkaline Phosphatase 69 U/L (38-126); Anion Gap 9 mmol/L (4-12); Aspartate Amino Transferase 22 U/L (17-59); Bilirubin,Total 0.7 mg/dL (0.2-1.3); Blood Urea Nitrogen 11 mg/dL (9-20); Calcium 8.8 mg/dL (8.4-10.2); Carbon Dioxide 27 mmol/L (22-30); Chloride 104 mmol/L (98-107); Cholesterol 133 mg/dL (0-200); Creatine Kinase 85 U/L (55-170); Estimated Glomerular Filt Rate > 60; Glucose 103 mg/dL (65-110); HDL Direct 33 mg/dL; Potassium 4.1 mmol/L (3.4-5.0); Sodium 140 mmol/L (137-145); Triglycerides 232 mg/dL (<150)
[2024-01-10 12:55] LABS: LDL Cholesterol Direct 51 mg/dL
[2024-01-10 13:35] LABS: Prostate Specific Antigen 0.6 ng/mL (< OR = 4.0)
== END 2024-01-10 12:06 | disposition home or self-care (01) ==
PROVIDERS: PCP Internal Medicine; Visit Provider Internal Medicine
DX: Z12.5 Encounter for screening for malignant neoplasm of prostate (principal); E78.5 Hyperlipidemia, unspecified; R25.3 Fasciculation
CPT/HCPCS: 36415; 80053; 80061; 82550; 84153; G0103

== ENCOUNTER 2024-02-27 10:35 | Outpatient (CLI) | payer OTHER, SELFPAY ==
--- NOTE | ~2024-02-27 | XR_ITS ---
XR chest 2V 02/27/2024 10:50 Indication: Cough Procedure: 2 view chest Comparison: Comparison to multiple prior studies sequentially, with oldest reviewed study dated 09/07. Findings: There are chronic bibasilar infiltrates. Heart size normal. No pleural effusion or pneumoth orax. No acute osseous abnormality. Impression: 1: Chronic unchanged bibasilar infiltrates, most likely atelectasis or scarring. Atypical pneumonia l ess favored. Reviewed, dictated and finalized at location B. [employer] Impression: 1: Chronic unchanged bibasilar infiltrates, most likely atelectasis or scarring . Atypical pneumonia less favored.
== END 2024-02-27 10:36 | disposition home or self-care (01) ==
PROVIDERS: PCP Internal Medicine; Visit Provider Internal Medicine
DX: R05.9 Cough, unspecified (principal); R91.8 Other nonspecific abnormal finding of lung field
CPT/HCPCS: 71046